=== PATIENT | male | born 1940 | race Caucasian/White ===

== ENCOUNTER 2018-12-26 19:22 | Emergency (ER) | payer MEDICAID, OTHER ==
[~2018-12-26] VITALS: Ht 167.6 cm; Wt 59.0 kg
[~2018-12-26 19:22] MED LIST: CLIN300C11 PO; OMEP20CA11 PO; PILO5TAB PO
--- NOTE | 2018-12-26 19:25 | NUR ---
"BIB FAMILY C/O FEVER, COUGH AND CONGESTION X4 DAYS. RECEIVED FLU VACCINE 12/23/18" PT AAOX4, -SOB, PT ON MONTIOR, VSS, NAD NTOED. DEBI GILBERT
[2018-12-26 20:17] LABS: BASOPHILS # (AUTO) 0.1 /CMM (0.0-0.2); BASOPHILS % (AUTO) 0.6 % (0.0-2.0); HEMATOCRIT 39 % (39-51); HEMOGLOBIN 13.2 g/dL (13.5-17.5); LYMPHOCYTES # (AUTO) 0.5 /CMM (0.8-4.8); LYMPHOCYTES % (AUTO) 2.7 % (20.0-44.0); MEAN CORPUSCULAR HGB CONC 34 g/dl (31.0-36.0); MEAN CORPUSCULAR VOLUME 97 fL (80-96); MONOCYTES # (AUTO) 1.1 /CMM (0.1-1.30); MONOCYTES % (AUTO) 5.8 % (2.0-12.0); NEUTROPHILS % (AUTO) 90.9 % (43.0-81.0); PLATELET COUNT (AUTO) 270 /CMM (150-450); RED BLOOD CELL COUNT(AUTO) 3.98 MIL/uL (4.5-6.0); WHITE BLOOD COUNT (AUTO) 18.7 K/uL (4.3-11.0)
[2018-12-26 20:40] LABS: APPEARANCE,URINE HAZY (CLEAR); BILIRUBIN,URINE Negative (NEGATIVE); BLOOD, URINE Moderate Ery/uL (NEGATIVE); COLOR,URINE Yellow (YELLOW); KETONES,URINE 40 (NEGATIVE); LEUKOCYTE ESTERASE ,URINE Negative (NEGATIVE); NITRITE, URINE Negative (NEGATIVE); PH,URINE 5.5 (5.0-8.0); PROTEIN,URINE 100 mg/dl (NEGATIVE); UGLUCOSE 250 MG/DL mg/dL (NEGATIVE); UROBILINOGEN,URINE 0.2 EU/dL (0.2)
[2018-12-26 20:58] LABS: BACTERIA,URINE Few /HPF (None Seen); COARSE GRANULAR CASTS,URINE Few /LPF (None Seen); SQUAMOUS EPITHELIAL CELL,UR Few /HPF (None Seen)
[2018-12-26] MEDS ORDERED: VANCOMYCIN 1 GM in IV D5W 250 ML IV ONE (21:00)
[2018-12-26] MEDS ORDERED: CEFEPIME 1 GM in IV D5W 50 ML IV ONE (21:00)
[2018-12-26 21:05] LABS: CALCIUM, SERUM 8.4 mg/dL (8.5-10.1); CARBON DIOXIDE 27 mmol/L (21-32); CHLORIDE 97 mmol/L (98-107); CREATININE 1.3 mg/dL (0.6-1.3); GLUCOSE 197 mg/dL (74-106); POTASSIUM 3.6 mmol/L (3.5-5.1); SODIUM SERUM 134 mmol/L (136-145); UREA NITROGEN, BLOOD 21 mg/dL (7-18)
[2018-12-26] MEDS ORDERED: CEFEPIME 1 GM VIAL ONE (21:10)
[2018-12-26] MEDS ORDERED: VANCOMYCIN 1 GM VIAL ONE (21:10)
[2018-12-26 21:11] LABS: ALANINE AMINOTRANSFERASE 44 U/L (12-78); ALBUMIN 3.2 g/dL (3.4-5.0); ALKALINE PHOSPHATASE 80 U/L (46-116); ASPARTATE AMINOTRANSFERASE 52 U/L (15-37); BILIRUBIN,DIRECT 0.2 mg/dL (0.0-0.2); BILIRUBIN,TOTAL 0.8 mg/dL (0.2-1.0); TOTAL PROTEIN, SERUM 7.9 g/dL (6.4-8.2)
[2018-12-26 21:53] LABS: BAND % (MANUAL) 5 % (0.0-5.0); LYMPHOCYTES % (MANUAL) 3 % (16-48); MONOCYTES % (MANUAL) 3 % (0-11.0); NEUTROPHILS % (MANUAL) 89 (42-76)
[2018-12-26] MEDS ORDERED: IV NS 0.9% 1,000 ML BAG IV ONE (22:00)
--- NOTE | 2018-12-26 22:22 | NUR ---
PT AWAITING TRANSFER INFO TO [facility] Addendum: 12/26/18 at 2224 by KATHRINE PACHECO [facility]
--- NOTE | 2018-12-26 22:39 | NUR ---
TRANSFER INFO: PT WILL GO TO [facility] ACCEPTED BY DR ANDUJAR DIRECT ADMIT TO ROOM [id number], RN FOR REPORT [phone], AMBULANCE ETA TO FOLLOW AMBULANCE AUTH#[id number]
--- NOTE | 2018-12-26 23:00 | NUR ---
AGUILAR [id number] [facility]#[id number]
--- NOTE | 2018-12-26 23:57 | NUR ---
NUMBER FOR REPORT: [phone] NURSE LEYVA
--- NOTE | 2018-12-27 00:16 | NUR ---
REPORT GIVEN TO AUTUMN NURSE AT [facility]
[2018-12-27 00:33] VITALS: BP 120/66
--- NOTE | 2018-12-27 00:36 | NUR ---
REPORT GIVEN TO AMBULANCE STAFF. PT LEFT IN STABLE CONDITION VIA PRIVATE AMBULANCE, VSS, NAD NOTED. ALL PAPERWORK GIVEN.
== END 2018-12-27 00:38 | disposition short-term general hospital (02) ==
LOC: ER 19:24
DX: A41.9 Sepsis, unspecified organism (principal); R65.21 Severe sepsis with septic shock; J18.9 Pneumonia, unspecified organism; D64.9 Anemia, unspecified; R31.9 Hematuria, unspecified; E03.9 Hypothyroidism, unspecified; G89.29 Other chronic pain; E86.0 Dehydration; R00.0 Tachycardia, unspecified; Z90.49 Acquired absence of other specified parts of digestive tract; Z85.72 Personal history of non-Hodgkin lymphomas; Z60.2 Problems related to living alone
CPT/HCPCS: 36415; 71045; 80048; 80076; 81001; 83605 ×2; 84145; 84484; 85025; 85730; 87040 ×2; 87081; 87086; 87804 ×2; 93005; 96365; 96368; 99291; J0692 ×2; J3370; J7060 ×2; 81000-TC

== ENCOUNTER 2020-05-28 10:45 | Outpatient (CLI) | payer MEDICARE, MEDICAID | END 2020-05-28 23:59 | disposition home or self-care (01) | LOC: WOU 10:45 | PROVIDERS: ATTEND Podiatrist Foot & Ankle Surgery | DX: B35.1 Tinea unguium (principal); M79.672 Pain in left foot; M79.671 Pain in right foot; Z99.3 Dependence on wheelchair | CPT/HCPCS: G0463 ==

== ENCOUNTER 2020-09-07 10:13 | Emergency (ER) | payer MEDICARE, OTHER ==
[~2020-09-07] VITALS: Ht 167.6 cm; Wt 73.5 kg
[2020-09-07 10:26] VITALS: BP 110/70
--- NOTE | 2020-09-07 10:43 | NUR ---
AT BEDSIDE FOR EVAL.
--- NOTE | 2020-09-07 10:55 | NUR ---
DRESSING DONE BY WALL SCRAPER.
[2020-09-07] MEDS ORDERED: CEPH250S PO (11:32)
--- NOTE | 2020-09-07 11:36 | NUR ---
Patient discharged to home in stable condition. Written and verbal after care instructions given. Patient verbalizes understanding of instruction.
== END 2020-09-07 11:37 | disposition home or self-care (01) ==
LOC: ER 10:15
DX: K94.20 Gastrostomy complication, unspecified (principal); E03.9 Hypothyroidism, unspecified; Z90.49 Acquired absence of other specified parts of digestive tract; Z60.2 Problems related to living alone